=== PATIENT | male | born 2000 | race Two or more races ===

== ENCOUNTER 2019-08-27 15:17 | Emergency (ER) | payer SELFPAY ==
[2019-08-27] MEDS ORDERED: cefTRIAXone 1 GM, Lidocaine 1% 2.1 ML IM ONE ×2 (15:49)
[2019-08-27] MEDS ORDERED: Azithromycin 250 MG Tab PO ONE (15:51)
--- NOTE | 2019-08-27 16:50 | EDM.PDOC ---
ED HPI GENERAL MEDICAL PROBLEM - General Chief Complaint: Genitourinary Problem Stated Complaint: ER Time Seen by Provider: 08/27/19 15:22 Source of Information: Reports: Patient History Limitations: Reports: No Limitations - History of Present Illness INITIAL COMMENTS - FREE TEXT/NARRATIVE: Pt. presents to ER with complaints of burning with urination and erythema to the glans of his penis. Pt. states that he uses condoms during intercourse, but states that he recently had a condom break during intercourse. He states that he did come in contact with his partner at that time, but replaced the condom. Denies any fever or chills. No abdominal discomfort. No fever or chills. Denies any history sexually transmitted diseases in the past. He states that he has noticed some clear/whitish discharge from the penis as well. Onset: Today Onset Date: 08/27/19 Location: Reports: Other Quality: Reports: Burning - Related Data Allergies Allergy/AdvReac Type Severity Reaction Status Date / Time No Known Allergies Allergy Verified 08/27/19 15:27 Past Medical History - Past Surgical History HEENT Surgical History: Reports: Tonsillectomy Musculoskeletal Surgical History: Reports: Other (See Below) Other Musculoskeletal Surgeries/Procedures:: ACL surgery Social & Family History - Tobacco Use Smoking Status *Q: Never Smoker - Alcohol Use Days Per Week of Alcohol Use: 2 Number of Drinks Per Day: 4 Total Drinks Per Week: 8 - Recreational Drug Use Recreational Drug Use: No ED ROS GENERAL - Review of Systems Review Of Systems: See Below Constitutional: Reports: No Symptoms HEENT: Reports: No Symptoms Respiratory: Reports: No Symptoms Cardiovascular: Reports: No Symptoms Endocrine: Reports: No Symptoms GI/Abdominal: Reports: No Symptoms : Reports: Discharge, Dysuria, Pain Musculoskeletal: Reports: No Symptoms Skin: Reports: No Symptoms Neurological: Reports: No Symptoms Psychiatric: Reports: No Symptoms Hematologic/Lymphatic: Reports: No Symptoms Immunologic: Reports: No Symptoms ED EXAM, GENERAL - Physical Exam Exam: See Below Exam Limited By: No Limitations General Appearance: Alert, WD/WN, No Apparent Distress (Male) Exam: Penile Lesions, Rash, Urethral Discharge, Other (uncircumcised male. Erythema to glans of penis, particularly around urethral meatus. He also has a small lesion to the lateral aspect of the L side of the shaft as well. ) Course - Vital Signs Last Recorded V/S: Last Vital Signs Temp 36.8 C 08/27/19 15:22 Pulse 80 08/27/19 16:22 Resp 14 08/27/19 16:22 BP 124/78 08/27/19 16:22 Pulse Ox 99 08/27/19 16:22 - Orders/Labs/Meds Orders: Active Orders 24 hr Category Date Time Status CHLAMYDIA AND GONORRHEA BY [facility] Stat Lab 08/27/19 15:45 Ordered Meds: Medications Discontinued Medications Generic Name Dose Route Start Last Admin Trade Name Raad PRN Reason Stop Dose Admin Azithromycin 1,000 mg 08/27/19 15:51 08/27/19 15:59 Zithromax PO 08/27/19 15:52 1,000 mg ONETIME ONE Administration Ceftriaxone Sodium 1 gm/ 0 gm 08/27/19 15:49 08/27/19 16:02 Lidocaine HCl 2.1 ml IM 08/27/19 15:50 1 inj ONETIME ONE Administration Departure - Departure Time of Disposition: 16:22 Disposition: Home, Self-Care 01 Clinical Impression: Urethritis - Discharge Information Instructions: Chlamydia Test, Gonorrhea Forms: ED Department Discharge Additional Instructions: I will let you know the results of your urine test. abstain from sexual activity for 1 week. Follow-up in the clinic in 7-10 days if you are still having symptoms. Sepsis Event Note - Evaluation Sepsis Screening Result: No Definite Risk - Focused Exam Vital Signs: Vital Signs Temp Pulse Resp BP Pulse Ox 08/27/19 16:22 80 14 124/78 99 08/27/19 15:22 36.8 C 92 16 152/83 H 99 Date Exam was Performed: 08/27/19 Time Exam was Performed: 16:45 - My Orders Last 24 Hours: My Active Orders 08/27/19 15:45 CHLAMYDIA AND GONORRHEA BY [facility] Stat - Assessment/Plan Last 24 Hours: My Active Orders 08/27/19 15:45 CHLAMYDIA AND GONORRHEA BY [facility] Stat Plan: Pt. was given 1 gm rocephin IM and 1 gm azithromycin PO. He was tested to GC/ chlamydia. He will be alerted of the results. Abstain from sexually transmitted diseases. Advised to follow-up in clinic in 7-10 days if not gradually improving.
== END 2019-08-27 16:22 | disposition home or self-care (01) ==
LOC: VM.ED 15:17
DX: N34.2 Other urethritis (principal)
CPT/HCPCS: 87491; 87591; 96372; 99283; A9270; J0696; J2001